=== PATIENT | male | born 1995 ===

== ENCOUNTER → 2019-12-22 10:40 | Outpatient (CLI) | payer BC, SELFPAY ==
--- NOTE | ~2019-12-22 | MR_ITS ---
EXAMINATION: MR knee RT wo con DATE: 12/22/2019 11:31 INDICATION: Right knee pain. TECHNIQUE: Magnetic resonance imaging (MRI) of the right knee was performed without intravenous contr ast. Sequences included axial PD-weighted FS FSE, coronal PD-weighted FSE and PD-weighted FS FSE, sag ittal PD-weighted FSE, and sagittal T2-weighted FS FSE. COMPARISON: None. FINDINGS: Medial compartment: There is a torn buckle handle tear of the medial meniscus with displaced meniscus in the intercondyla r notch. Medial compartment cartilage is normal, but mild motion artifact decreases specificity. Lateral compartment: The lateral meniscus is normal. The lateral compartment cartilage is normal, but mild motion artifact decreases specificity. Patellofemoral compartment: Patellar cartilage and trochlear cartilage are normal, but mild motion artifact decreases specificity . Ligaments and tendons: There is a complete tear of the anterior cruciate ligament. Posterior cruciate ligament is intact. Th ere is edema around the medial collateral ligament, consistent with grade 1 sprain. There are changes of grade 2 sprain of fibular collateral ligament characterized by thickening and increased signal in tensity proximally. There is mild patellar tendinopathy. Fluid: There is a large knee joint effusion. Osseous/other: There is bone marrow edema of posterior medial tibial condyle and posterior lateral tibial condyle, c onsistent with contusions. IMPRESSION: 1. Complete tear of anterior cruciate ligament. 2. Displaced torn bucket-handle tear of medial meniscus. 3. Large knee joint effusion. 4. Mild sprains of medial collateral ligament and fibular collateral ligament. Reviewed, dictated and finalized at location A.
== END ==
PROVIDERS: PCP Family Medicine; Visit Provider Chiropractor
DX: S83.511A Sprain of anterior cruciate ligament of right knee, initial encounter (principal); X58.XXXA Exposure to other specified factors, initial encounter; M25.461 Effusion, right knee; S83.411A Sprain of medial collateral ligament of right knee, initial encounter
CPT/HCPCS: 73721